=== PATIENT | male | born 1995 | race American Indian/Alaskan Native ===

== ENCOUNTER 2019-05-15 10:56 | Emergency (ER) | payer SELFPAY ==
[2019-05-15 12:57] VITALS: BP 137/91
--- NOTE | 2019-05-15 13:19 | Emergency Department Report ---
Chief Complaint: Upper Respiratory Infection Stated Complaint: CHEST PAIN, HEADACHE Time Seen by Provider: 05/15/19 13:16 - HPI History of Present Illness: 24 y o male presents with URI sx with no fever for the past couple of days. Patient states he has had some intermittent coughing nonproductive, runny nose and throat pain. Patient states that he woke up this morning with some body aches and he wasnt able to go to work today She states that he is feeling better after he is taking some [id number]-pwa-wemdhsk medications. denies f/c/nausea vomiting, chest pain, shortness of breath or any other symptoms - ROS Review of Systems: as noted in hpi - Exam Vital Signs: Vital Signs 05/15/19 12:52 Temperature 98.4 F Pulse Rate 90 Respiratory 18 Rate Blood Pressure 137/91 O2 Sat by Pulse 100 Oximetry Physical Exam: GENERAL: Alert and oriented x3, no apparent distress, Normal Gait, atraumatic. HEAD: Head is normocephalic and a-traumatic. LUNGS: Symetrical with respiration, No wheezing, no rales or crackles, CTAB. HEART: S1, S2 present, regular rate and rhythm without murmur, no rubs, no gallops. Non tender to palpation MSE screening note: Focused history and physical exam performed. Due to findings the following was ordered: ED Medical Decision Making - Medical Decision Making 24-year-old male presents with flulike symptoms. no fever during the ED stay. Discussed with mother symptomatic relief with [id number] medications. Discussed continue Tylenol and Motrin as needed for fever and pain. Discussed increase fluids and diet intake. Discussed rest much needed. Discussed daily vitamin C for immune booster. Discussed follow-up with pcpin 3-5 days. Patient verbally states she understands and will comply the following instructions and follow-up Vital signs stable. Patient is in no acute distress ED Disposition for MSE Clinical Impression: Upper respiratory infection Disposition: MED SCREENING EXAM-LEFT Is pt being admited?: No Does the pt Need Aspirin: No Condition: Stable Instructions: Upper Respiratory Infection (ED), Cold Symptoms (ED) Additional Instructions: follow up with pcp rest hydrate Referrals: [facility] [Outside] - 3-5 Days [facility] [Outside] - 3-5 Days Forms: Accompanied Note, Work/School Release Form(ED) Time of Disposition: 13:21
== END 2019-05-15 13:24 | disposition left against medical advice (07) ==
LOC: ED 10:56
DX: J06.9 Acute upper respiratory infection, unspecified (principal)
CPT/HCPCS: 99281